=== PATIENT | male | born 1970 | race Caucasian/White ===

== ENCOUNTER 2017-01-20 09:32 | Emergency (ER) | payer BC, OTHER ==
[2017-01-20 11:11] VITALS: BP 144/85
--- NOTE | 2017-01-20 11:23 | UC ---
Hand/Wrist HPI - HPI Summary HPI Summary: Pt presents with c/o gradual onset of pain and welling in right lateral aspect of wrist. Denies trauma/injury - History Of Current Complaint Stated Complaint: RIGHT WRIST INJURY (WC) Time Seen by Provider: 01/20/17 11:06 Hx Obtained From: Patient ?: No Onset/Duration: Gradual Onset, Lasting Days - 2 Severity Initially: Mild Severity Currently: Moderate Character Of Pain: Dull, Stiffness Aggravating Factor(s): Movement Alleviating: Rest Associated Signs And Symptoms: Positive: Swelling - Risk Factors Compartment Syndrome Risk Factors: Pain - Allergies/Home Medications Allergies/Adverse Reactions: Allergies Allergy/AdvReac Type Severity Reaction Status Date / Time No Known Allergies Allergy Verified 01/20/17 11:07 PMH/Surg Hx/FS Hx/Imm Hx Previously Healthy: Yes - Surgical History Surgical History: None - Family History Known Family History: Positive: Cardiac Disease - Social History Occupation: Employed Full-time Lives: With Family Alcohol Use: None Substance Use Type: None Smoking Status (MU): Heavy Every Day Tobacco Smoker Type: Cigarettes Amount Used/How Often: 1 ppd Length of Time of Smoking/Using Tobacco: ~ 20 years Have You Smoked in the Last Year: Yes Review of Systems Constitutional: Negative Skin: Negative Eyes: Negative ENT: Negative Respiratory: Negative Cardiovascular: Negative Gastrointestinal: Negative Genitourinary: Negative Motor: Decreased ROM - secondary to pain in right wrist Neurovascular: Negative Musculoskeletal: Arthralgia, Decreased ROM - right wrist, Edema - right lateral aspect of right wrist, Myalgia - right wrist Neurological: Negative Psychological: Negative All Other Systems Reviewed And Are Negative: Yes Physical Exam Triage Information Reviewed: Yes Appearance: Well-Appearing Vital Signs: Initial Vital Signs Temp 98.2 F 01/20/17 11:08 Pulse 82 01/20/17 11:08 Resp 16 01/20/17 11:08 BP 144/85 01/20/17 11:08 Pulse Ox 98 01/20/17 11:08 Vital Signs Reviewed: Yes Eye Exam: Normal ENT Exam: Normal Dental Exam: Normal Neck exam: Normal Respiratory Exam: Normal Cardiovascular Exam: Normal Musculoskeletal Exam: Other Musculoskeletal: Positive: Edema @ - right lateral wrist Neurological Exam: Normal Psychological Exam: Normal Skin Exam: Normal Hand/Wrist Course/Dx - Differential Dx/Diagnosis Differential Diagnosis/HQI/PQRI: Infection, Tendonitis, Tenosynovitis Provider Diagnoses: right wrist tenosynovitis Discharge - Discharge Plan Condition: Stable Disposition: HOME Prescriptions: Ibuprofen TAB* [Motrin TAB* 600 MG] 600 mg PO Q8H PRN #21 tab PRN Reason: Pain Patient Education Materials: Tenosynovitis (ED) Referrals: [facility] [Outside] No Primary Care Phys,NOPCP [Primary Care Provider] - Sofia Flores MD [Medical Doctor] -
== END 2017-01-20 11:33 | disposition home or self-care (01) ==
LOC: UCCORT 09:32
DX: M65.831 Other synovitis and tenosynovitis, right forearm (principal); F17.210 Nicotine dependence, cigarettes, uncomplicated
CPT/HCPCS: 99212; G0463

== ENCOUNTER 2021-05-18 02:05 | Observation (INO) ==
[2021-05-18] MEDS ORDERED: NS 0.9% 1000 ml BAG 1,000 ML IV SCH (03:00)
[2021-05-18 03:02] LABS: ABS Lymphocytes 0.5 10^3/ul (1.0-4.8); ABS Monocytes 0.5 10^3/ul (0-0.8); ABS Neutrophils 10.3 10^3/ul (1.5-7.7); Hematocrit 48 % (42-52); Hemoglobin 16.5 g/dL (14.0-18.0); Lymphocyte % 4.8 %; Mean Corpuscular HGB Conc 34 g/dL (31-36); Mean Corpuscular Hemoglobin 33 pg (27-31); Mean Corpuscular Volume 95 fL (80-94); Mean Platelet Volume 8.4 fL (7.4-10.4); Platelet Count 220 10^3/uL (150-450); Red Blood Count 5.07 10^6 /uL (4.18-5.48); Red Cell Distribution Width 14 % (10-15); White Blood Count 11.4 10^3/uL (3.5-10.8)
[2021-05-18] MEDS: Enoxaparin 40 MG/0.4 ML SYR SUBCUT SCH (03:14)
[2021-05-18 03:17] LABS: ALT 14 U/L (7-52); AST 17 U/L (13-39); Albumin 4.8 g/dL (3.2-5.2); Albumin/Globulin Ratio 1.5 (1-3); Alkaline Phosphatase 86 U/L (35-149); Anion Gap 9 mmol/L (2-11); Blood Urea Nitrogen 19 mg/dL (6-24); CO2 Carbon Dioxide 30 mmol/L (22-32); Calcium 9.4 mg/dL (8.6-10.3); Chloride 98 mmol/L (101-111); Globulin 3.1 g/dL (2-4); Glucose 138 mg/dL (70-100); Potassium 4.3 mmol/L (3.5-5.0); Sodium 137 mmol/L (135-145); Total Protein 7.9 g/dL (6.4-8.9); eGFR CKD-EPI 95.7 (>60)
[2021-05-18 03:50] LABS: Folate 18.82 ng/mL (5.90-24.80)
[2021-05-18 03:51] LABS: Vitamin B12 318 pg/mL (180-914)
[2021-05-18 04:05] LABS: TSH Ultra Thyroid Stim Horm 2.93 mcIU/mL (0.34-5.60)
[2021-05-18 04:28] LABS: Alcohol, S < 13 mg/dL (<13)
[2021-05-18 07:04] LABS: Cholesterol 208 mg/dL; HDL Cholesterol 75.1 mg/dL; LDL Cholesterol 116 mg/dL; Triglycerides 87 mg/dL
[2021-05-18] MEDS ORDERED: Iohexol 350 (CONTRAST) 500 ML MDV IV ONE (11:57)
[2021-05-18 13:46] LABS: Urine Appearance Clear; Urine Bacteria Absent (Absent); Urine Bilirubin Negative (Negative); Urine Blood Negative (Negative); Urine Color Yellow; Urine Glucose Negative (Negative); Urine Ketones Trace (Negative); Urine Nitrite Negative (Negative); Urine Protein 1+(30 mg/dL) (Negative); Urine Red Blood Cell Trace(0-2/hpf) (Absent); Urine Specific Gravity 1.049 (1.002-1.030); Urine Squamous Epithelial Cell Present (Absent); Urine Urobilinogen Negative (Negative); Urine White Blood Cell Trace(0-5/hpf) (Absent)
[2021-05-19] MEDS: Enoxaparin 40 MG/0.4 ML SYR SUBCUT SCH (08:47)
[2021-05-19 09:51] LABS: ABS Eosinophils 0.2 10^3/ul (0-0.6); ABS Lymphocytes 1.8 10^3/ul (1.0-4.8); ABS Monocytes 0.8 10^3/ul (0-0.8); ABS Neutrophils 4.8 10^3/ul (1.5-7.7); Eosinophil % 2.5 %; Hematocrit 44 % (42-52); Hemoglobin 15.1 g/dL (14.0-18.0); Lymphocyte % 23.3 %; Mean Corpuscular HGB Conc 34 g/dL (31-36); Mean Corpuscular Hemoglobin 33 pg (27-31); Mean Corpuscular Volume 95 fL (80-94); Mean Platelet Volume 8.8 fL (7.4-10.4); Nucleated Red Blood Cells % 0.1; Platelet Count 174 10^3/uL (150-450); Red Blood Count 4.63 10^6 /uL (4.18-5.48); Red Cell Distribution Width 14 % (10-15); White Blood Count 7.5 10^3/uL (3.5-10.8)
[2021-05-19 09:57] LABS: Albumin 4.1 g/dL (3.2-5.2); Calcium 8.9 mg/dL (8.6-10.3); Potassium 3.8 mmol/L (3.5-5.0)
[2021-05-19 10:03] LABS: Albumin/Globulin Ratio 1.6 (1-3); Globulin 2.6 g/dL (2-4); Total Protein 6.7 g/dL (6.4-8.9); eGFR CKD-EPI 99.4 (>60)
[2021-05-20] MEDS: Enoxaparin 40 MG/0.4 ML SYR SUBCUT SCH (08:11)
[2021-05-20 11:21] VITALS: BP 132/94
== END 2021-05-20 09:00 | disposition home or self-care (01) ==
LOC: EDHOLD 02:05 → ED 02:05 → SUATTDRO 02:36 → MEDTELE 06:28
PROVIDERS: ADMIT Internal Medicine; ATTEND Internal Medicine